=== PATIENT | male | born 1985 | race Caucasian/White ===

== ENCOUNTER 2016-09-24 10:10 | Emergency (ER) | payer OTHER ==
[2016-09-24 10:23] VITALS: BP 134/86
--- NOTE | 2016-09-24 10:48 | UC ---
FLU HPI - HPI Summary HPI Summary: This is a 31 yo male who smokes who presents with c/o congestion and cough. Symptoms have been 4-5 days. He reports his cough is getting worse. It is preventing him from sleeping. Denies assoc SOB. No n/v. Some arthralgias/ myalgias. Denies CP. No facial pain. - History of Current Complaint Chief Complaint: UCRespiratory Stated Complaint: SINUS COMPLAINT - Allergy/Home Medications Allergies/Adverse Reactions: Allergies Allergy/AdvReac Type Severity Reaction Status Date / Time Penicillins Allergy Unknown Unknown Verified 09/24/16 10:17 Reaction Details Home Medications: Home Medications Ibuprofen TAB* [Advil TAB*] 400 - 800 mg PO Q6H PRN 09/24/16 [History Confirmed 09/24/16] PMH/Surg Hx/FS Hx/Imm Hx Previously Healthy: Yes GI/ History Of: Reports: Ulcer - Surgical History Surgical History: None - Social History Alcohol Use: None Substance Use Type: None Smoking Status (MU): Heavy Every Day Tobacco Smoker Type: Cigarettes Amount Used/How Often: 1 PPD Length of Time of Smoking/Using Tobacco: since age 15 Have You Smoked in the Last Year: Yes Household Exposure Type: Cigarettes - Immunization History Most Recent Influenza Vaccination: "I don't get flu shots." Review of Systems Constitutional: Fatigue Skin: Negative Eyes: Negative ENT: Negative Respiratory: Cough Cardiovascular: Negative Gastrointestinal: Negative Genitourinary: Negative Motor: Negative Neurovascular: Negative Musculoskeletal: Myalgia Neurological: Headache Psychological: Negative All Other Systems Reviewed And Are Negative: Yes Physical Exam Triage Information Reviewed: Yes Appearance: Well-Appearing Vital Signs: Initial Vital Signs Temp 98.6 F 09/24/16 10:14 Pulse 88 09/24/16 10:14 Resp 16 09/24/16 10:14 BP 134/86 09/24/16 10:14 Pulse Ox 99 09/24/16 10:14 Vital Signs Reviewed: Yes ENT: Positive: Hearing grossly normal, Pharynx normal, Nasal drainage, TMs normal, Tonsillar swelling. Negative: Tonsillar exudate Dental: Negative: Percussion Tenderness @ Neck: Positive: Supple, Nontender, No Lymphadenopathy Respiratory: Positive: Chest non-tender, Rhonchi. Negative: Crackles, Wheezing Cardiovascular: Positive: RRR, No Murmur Abdominal Exam: Normal Abdomen Description: Positive: Nontender Skin Exam: Normal Flu Course/Dx - Course Course Of Treatment: Symptoms consistent with an acute viral illness. Treat symptomatically. Some rhonchi on exam. Recommend decongestants and prn albuterol use. Encouraged smoking cessation. Did not test for influenza as he outside of the window for Tamiflu therapy and without medical complications. - Differential Dx/Diagnosis Provider Diagnoses: Acute viral illness. Viral bronchitis Discharge - Discharge Plan Condition: Stable Disposition: HOME Prescriptions: Albuterol Sulfate [Proair Respiclick] 2 puff IN Q4H PRN #1 inh PRN Reason: cough/shortness of breath Patient Education Materials: Acute Bronchitis (ED) Referrals: No Primary Care Phys,NOPCP [Primary Care Provider] - Additional Instructions: Activity: As tolerated Instructions: 1. Use sudafed during the day for congestion relief 2. At night, use Robitussin DM 3. Use albuterol before bed and as needed during the day for cough or shortness of breath 4. Quit smoking!
== END 2016-09-24 10:56 | disposition home or self-care (01) ==
LOC: UCCORT 10:10
DX: B34.9 Viral infection, unspecified (principal); J20.8 Acute bronchitis due to other specified organisms; Z88.0 Allergy status to penicillin; F17.210 Nicotine dependence, cigarettes, uncomplicated
CPT/HCPCS: 99212; G0463

== ENCOUNTER 2017-08-04 10:55 | Emergency (ER) | payer BC, OTHER ==
[2017-08-04 11:31] VITALS: BP 137/85
--- NOTE | 2017-08-04 13:10 | UC ---
Skin Complaint HPI - HPI Summary HPI Summary: Pt c/o tender Lump, then spontaneous rupture with small amount of bloody, pus on underwear. - History of Current Complaint Chief Complaint: UCSkin Time Seen by Provider: 08/04/17 13:03 Stated Complaint: SKIN COMPLAINT Hx Obtained From: Patient Onset/Duration: Sudden Onset, Still Present Skin Exposure Onset/Duration: Days Ago Timing: Constant Onset Severity: Mild Current Severity: Mild Pain Intensity: 3 Location: Discrete - left upper inner thigh Character: Pain, Redness, Raised Aggravating Factor(s): Touch Alleviating Factor(s): Other - warm compresses Associated Signs & Symptoms: Positive: Drainage, Tenderness - Allergy/Home Medications Allergies/Adverse Reactions: Allergies Allergy/AdvReac Type Severity Reaction Status Date / Time MS Penicillins [Penicillins] Allergy Unknown Unknown Verified 08/04/17 11:29 Reaction Details Review of Systems Constitutional: Negative Skin: Other - abscess, drainage Eyes: Negative ENT: Negative Respiratory: Negative Cardiovascular: Negative Gastrointestinal: Negative Genitourinary: Negative Motor: Negative Neurovascular: Negative Musculoskeletal: Negative Neurological: Negative Psychological: Negative Is Patient Immunocompromised?: No All Other Systems Reviewed And Are Negative: Yes PMH/Surg Hx/FS Hx/Imm Hx Previously Healthy: Yes - Surgical History Surgical History: None - Family History Known Family History: Positive: Cardiac Disease - Social History Occupation: Employed Full-time Lives: With Family Alcohol Use: Rare Substance Use Type: None Smoking Status (MU): Heavy Every Day Tobacco Smoker Type: Cigarettes Amount Used/How Often: 1 PPD Length of Time of Smoking/Using Tobacco: since age 15 Have You Smoked in the Last Year: Yes Household Exposure Type: Cigarettes - Immunization History Most Recent Influenza Vaccination: "I don't get flu shots." Physical Exam Triage Information Reviewed: Yes Appearance: Well-Appearing Vital Signs: Initial Vital Signs Temp 97.8 F 08/04/17 11:26 Pulse 73 08/04/17 11:26 Resp 16 08/04/17 11:26 BP 137/85 08/04/17 11:26 Pulse Ox 98 08/04/17 11:26 Vital Signs Reviewed: Yes Eye Exam: Normal ENT Exam: Normal Dental Exam: Normal Neck exam: Normal Respiratory Exam: Normal Cardiovascular Exam: Normal Musculoskeletal Exam: Normal Neurological Exam: Normal Psychological Exam: Normal Skin Exam: Other - dime size, draining abscess, left upper inner thigh. Course/Dx - Differential Diagnoses - Skin Complaint Differential Diagnoses: Abscess, MRSA - Diagnoses Provider Diagnoses: abscess Discharge - Discharge Plan Condition: Stable Disposition: HOME Prescriptions: Sulfamethox/Trimethoprim DS* [Bactrim DS 800/160 TAB*] 1 tab PO Q12H #14 tab Patient Education Materials: Abscess (ED), Warm Compress or Soak (ED) Referrals: No Primary Care Phys,NOPCP [Primary Care Provider] - If Needed
== END 2017-08-04 13:17 | disposition home or self-care (01) ==
LOC: UCCORT 10:55
DX: L02.416 Cutaneous abscess of left lower limb (principal)
CPT/HCPCS: 99212; G0463

== ENCOUNTER 2019-05-27 08:36 | Emergency (ER) | payer BC ==
[2019-05-27 09:08] VITALS: BP 136/85
[2019-05-27] MEDS ORDERED: Ibuprofen TAB* 600 MG PO ONE (09:30)
--- NOTE | 2019-05-27 09:34 | UC ---
Throat Pain/Nasal Moy HPI - HPI Summary HPI Summary: 33-year-old male comes in with a chief complaint of chills runny nose sinus congestion and sinus pressure and body aches for 2 days. Is also been very fatigued. Rhinorrhea is yellow. No complaint of shortness of breath. Patient is a smoker. He has had to decrease smoking cause of the symptoms. He has used [id number] medications which helped some with the symptoms. - History of Current Complaint Chief Complaint: UCRespiratory Stated Complaint: ACHY SINUS CONGESTION SORE THROAT Time Seen by Provider: 05/27/19 09:21 Pain Intensity: 4 - Allergies/Home Medications Allergies/Adverse Reactions: Allergies Allergy/AdvReac Type Severity Reaction Status Date / Time MS Penicillins [Penicillins] Allergy Unknown Unknown Verified 05/27/19 09:09 Reaction Details Home Medications: Home Medications Phenylephrine/Dm/Acetaminop/GG [Tylenol Cold-Flu Severe Liq] 240 ml PO PRN 05/27 [History] PMH/Surg Hx/FS Hx/Imm Hx Previously Healthy: Yes - Surgical History Surgical History: None - Family History Known Family History: Positive: Cardiac Disease - Social History Alcohol Use: Rare Substance Use Type: None Smoking Status (MU): Heavy Every Day Tobacco Smoker Type: Cigarettes Amount Used/How Often: 1 PPD Length of Time of Smoking/Using Tobacco: since age 15 Have You Smoked in the Last Year: Yes Household Exposure Type: Cigarettes - Immunization History Most Recent Influenza Vaccination: "I don't get flu shots." Review of Systems All Other Systems Reviewed And Are Negative: Yes Constitutional: Positive: Chills, Fatigue, Other - SEE HPI Skin: Positive: Negative Eyes: Positive: Negative ENT: Positive: Sore Throat - MILD, Nasal Discharge, Sinus Congestion, Sinus Pain /Tenderness Respiratory: Positive: Negative Cardiovascular: Positive: Negative Gastrointestinal: Positive: Negative Motor: Positive: Negative Neurovascular: Positive: Negative Musculoskeletal: Positive: Myalgia Neurological: Positive: Negative Psychological: Positive: Negative Is Patient Immunocompromised?: No Physical Exam Triage Information Reviewed: Yes Appearance: No Pain Distress, Well-Nourished, Ill-Appearing - MILD Vital Signs: Initial Vital Signs Temp 98.5 F 05/27/19 09:02 Pulse 89 05/27/19 09:02 Resp 20 05/27/19 09:02 BP 136/85 05/27/19 09:02 Pulse Ox 100 05/27/19 09:02 Vital Signs Reviewed: Yes Eye Exam: Normal Eyes: Positive: Conjunctiva Clear ENT: Positive: Pharyngeal erythema, Nasal congestion, Nasal drainage, TMs normal Neck: Positive: Supple Respiratory: Positive: Lungs clear, Normal breath sounds, No respiratory distress Cardiovascular: Positive: RRR Musculoskeletal: Positive: Strength Intact, ROM Intact Neurological: Positive: Alert, Muscle Tone Normal Psychological: Positive: Age Appropriate Behavior Skin Exam: Normal Throat Pain/Nasal Course/Dx - Course Course Of Treatment: DISCUSSED VIRAL VERSES BACTERIAL INFECTIONS AND THE ROLE OF ANTIBIOTICS. THE PATIENT PREFERS TO BE ON ANTIBIOTICS AT THIS TIME. - Differential Dx/Diagnosis Provider Diagnosis: Sinusitis Discharge ED - Sign-Out/Discharge Documenting (check all that apply): Patient Departure All imaging exams completed and their final reports reviewed: No Studies - Discharge Plan Condition: Stable Disposition: HOME Patient Education Materials: Sinusitis (ED) Referrals: [facility] [Outside] Additional Instructions: FOLLOW UP WITH YOUR DOCTOR IF NOT COMPLETELY IMPROVED. GET REEVALUATED SOONER IF NOT IMPROVING OR WORSE OR ANY QUESTIONS OR CONCERNS. - Billing Disposition and Condition Condition: STABLE Disposition: Home
[2019-05-27 09:48] LABS: Influenza A Molecular NEGATIVE (Negative); Influenza B Molecular NEGATIVE (Negative)
== END 2019-05-27 10:02 | disposition home or self-care (01) ==
LOC: UCCORT 08:36
DX: J32.9 Chronic sinusitis, unspecified (principal); J02.9 Acute pharyngitis, unspecified; M79.10 Myalgia, unspecified site; R53.83 Other fatigue; F17.210 Nicotine dependence, cigarettes, uncomplicated; Z88.0 Allergy status to penicillin
CPT/HCPCS: 99212; A9270-GY; G0463